=== PATIENT | male | born 1960 | race Caucasian/White ===

== ENCOUNTER 2017-07-19 07:16 | Day surgery (SDC) | payer BC ==
[2017-07-17 10:18] VITALS: BMI 33.0
[~2017-07-19 07:16] MED LIST: LACTATED RINGERS 1,000 ML IV SCH; LIDOCAINE 1% 20 ML VIAL (10MG/ML) FOR IV START INTRADERMA PRN; MIDAZOLAM 2 MG/2 ML VIAL IV PRN
[2017-07-19 08:03] VITALS: RESP 18; TEMP 98.7
[2017-07-19 08:40] LABS: Glucose,Whole Blood 126 mg/dL (75-99)
[2017-07-19] MEDS ORDERED: PROPOFOL 10 MG/ML 20 ML VIAL IV ONE (09:10)
[2017-07-19] MEDS ORDERED: LIDOCAINE 1% INJ 10MG/ML (20 ML MDV) ONE (09:10)
--- NOTE | 2017-07-19 09:43 | P.PCN ---
Date of Procedure: 07/19/17 Procedure(s) Performed: BRIEF HISTORY: Patient is a 56-year-old pleasant white male, scheduled for an elective colonoscopy as a part of evaluation of prior history of colon polyps. PROCEDURE PERFORMED: Colonoscopy with snare polypectomy. PREOPERATIVE DIAGNOSIS: History of colon polyps. IV sedation per Anesthesia. PROCEDURE: After informed consent was obtained, the patient, was brought into the endoscopy unit. IV sedation was administered by Anesthesia under continuous monitoring. Digital rectal examination was normal. Initially the Olympus CF- 160 flexible video colonoscope was then inserted in the rectum, gradually advanced into the cecum without any difficulty. Careful examination was performed as the scope was gradually being withdrawn. Ileocecal valve and the appendiceal orifice were visualized and appeared normal. Prep was excellent. Mucosa of the cecum showed a 5 mm and 1 cm polyps that were removed by snare polypectomy. In the proximal transverse colon there was a 7-8 mm polyp removed by snare polypectomy. The rest of the ascending colon, transverse colon, descending colon, sigmoid colon, and rectum appeared normal. In the descending colon there was a 1 cm pedunculated polyp removed by snare polypectomy. Retroflexion was performed in the rectum and no lesions were seen. The patient tolerated the procedure well. IMPRESSION: 5 mm and 1 cm cecal polyp status post polypectomy 7-8 mm transverse colon polyp status post polypectomy 1 cm descending colon polyp status post polypectomy RECOMMENDATIONS: Findings of this examination were discussed with the patient as well as his family. He was advised to follow with the biopsy results. If the biopsy shows a tubular adenoma, he can have a repeat colonoscopy in 3 years.
[2017-07-19 09:50] VITALS: PULSE 59
[2017-07-19 09:53] LABS: Glucose,Whole Blood 124 mg/dL (75-99)
[2017-07-19 10:02] VITALS: BP 147/82
== END 2017-07-19 10:11 | disposition home or self-care (01) ==
LOC: ORWHC2ENDO 07:16
PROVIDERS: ATTEND Internal Medicine Gastroenterology
DX: Z12.11 Encounter for screening for malignant neoplasm of colon (principal); D12.0 Benign neoplasm of cecum; D12.3 Benign neoplasm of transverse colon; D12.4 Benign neoplasm of descending colon; K63.5 Polyp of colon; I10 Essential (primary) hypertension; E11.9 Type 2 diabetes mellitus without complications; Z79.84 Long term (current) use of oral hypoglycemic drugs; Z79.899 Other long term (current) drug therapy
CPT/HCPCS: 88305; 45385; J2001; J2704